=== PATIENT | male | born 1940 | race Two or more races ===

== ENCOUNTER 2019-05-27 07:00 | Day surgery (SDC) | payer OTHER ==
[~2019-05-27 07:00] MED LIST: AMBIEN10 MG PO; HORIZANT600 MG PO; LIPITOR20 MG PO; LISINOPRIL30 MG PO; PLAVIX75 MG PO; PRILOSEC OTC20 MG PO
== END 2019-05-27 14:48 | disposition home or self-care (01) ==
LOC: CIR.AMB 07:00 → ADM 07:45 → CIR.AMB 07:45
DX: M99.63 Osseous and subluxation stenosis of intervertebral foramina of lumbar region (principal); M99.73 Connective tissue and disc stenosis of intervertebral foramina of lumbar region